=== PATIENT | female | born 1940 | race Hispanic/Latino ===

== ENCOUNTER 2018-03-09 23:56 | Emergency (ER) | payer OTHER ==
[2018-03-10] MEDS ORDERED: METOPROLOL TARTRATE 25 MG TAB ONE (01:33)
[2018-03-10 02:47] LABS: APPEARANCE,URINE Clear (CLEAR); BILIRUBIN,URINE Negative (NEGATIVE); COLOR,URINE Yellow (YELLOW); GLUCOSE, URINE (UA) Negative (NEGATIVE); KETONES,URINE Negative (NEGATIVE); LEUKOCYTE ESTERASE ,URINE Moderate (NEGATIVE); NITRATE,URINE Negative (NEGATIVE); OCCULT BLOOD,URINE Negative (NEGATIVE); PH,URINE 6.5 (5.0-8.0); PROTEIN,URINE Negative (NEGATIVE); UROBILINOGEN,URINE 0.2 mg/dL (0.2-1.0)
[2018-03-10 03:22] LABS: BACTERIA,URINE Rare /HPF (None Seen); RBC,URINE 0-1 /HPF (0-1); WBC,URINE 0-1 /HPF (0-1)
[2018-03-10 03:23] LABS: MUCUS,URINE Rare LPF (None Seen); SQUAMOUS EPITHELIAL CELL,UR 0-2 /HPF (0-2)
== END 2018-03-10 03:15 | disposition home or self-care (01) ==
LOC: EDH 23:56
DX: I16.0 Hypertensive urgency (principal); F43.20 Adjustment disorder, unspecified; I10 Essential (primary) hypertension
CPT/HCPCS: 81001; 93005

== ENCOUNTER → 2022-11-25 | Outpatient (CLI) | payer MEDICARE | END | disposition home or self-care (01) | LOC: RAH 09:25 | PROVIDERS: ATTEND Student in an Organized Health Care Education/Training Program | DX: N63.42 Unspecified lump in left breast, subareolar (principal); D24.2 Benign neoplasm of left breast; N64.89 Other specified disorders of breast; N60.02 Solitary cyst of left breast | CPT/HCPCS: 76641 ==

== ENCOUNTER → 2022-12-30 | Outpatient (CLI) | payer MEDICARE | END | disposition home or self-care (01) | LOC: RAH 10:35 | PROVIDERS: ATTEND Student in an Organized Health Care Education/Training Program | DX: Z12.31 Encounter for screening mammogram for malignant neoplasm of breast (principal) | CPT/HCPCS: 77067 ==

== ENCOUNTER → 2023-01-20 | Outpatient (CLI) | payer MEDICARE ==
[2023-01-20 09:57] LABS: INR 0.94 (0.85-1.15); PROTHROMBIN TIME 10.9 SEC (9.6-11.6)
[2023-01-20 09:58] LABS: PARTIAL THROMBOPLASTIN TIME 29.3 SEC (26.3-35.5)
== END | disposition home or self-care (01) ==
LOC: RAH 09:07
PROVIDERS: ATTEND Student in an Organized Health Care Education/Training Program
DX: N63.42 Unspecified lump in left breast, subareolar (principal); Z79.01 Long term (current) use of anticoagulants
CPT/HCPCS: 19083; 85610; 85730; 36415; 88305; A4215 ×2; A4648

== ENCOUNTER 2023-08-26 13:41 | Emergency (ER) | payer OTHER, MEDICARE ==
[~2023-08-26] VITALS: Ht 162.6 cm; Wt 56.7 kg
[2023-08-26] MEDS: HYDROCODONE/ACETAMINOPHEN 5/325 MG TAB PO ONE (14:39)
[2023-08-26 17:29] VITALS: BP 139/60; PULSE 63; RESP 14; O2SAT 97
== END 2023-08-26 17:30 | disposition home or self-care (01) ==
LOC: EDH 13:41
DX: M79.602 Pain in left arm (principal); M25.562 Pain in left knee; M54.9 Dorsalgia, unspecified; I10 Essential (primary) hypertension; V89.2XXA Person injured in unspecified motor-vehicle accident, traffic, initial encounter; Y93.I9 Activity, other involving external motion; Y92.488 Other paved roadways as the place of occurrence of the external cause; Y99.8 Other external cause status
CPT/HCPCS: 71045; 72170; 73090; 73562

== ENCOUNTER → 2023-09-28 | Outpatient (CLI) | payer MEDICARE ==
[2023-09-28 12:20] LABS: BASOPHILS # (AUTO) 0.09 K/uL (0.00-0.20); BASOPHILS % (AUTO) 1.1 % (0.0-5.0); EOSINOPHILS # (AUTO) 0.32 K/uL (0.00-0.70); HEMATOCRIT 38.6 % (36-48); IMMATURE GRANULOCYTE ABSOLUTE 0.03 K/uL (0-1); LYMPHOCYTES # (AUTO) 2.2 K/uL (1.0-4.8); LYMPHOCYTES % (AUTO) 27.5 % (21.0-51.0); MEAN CORPUSCULAR HEMOGLOBIN 31.3 pg (27.0-33.0); MEAN CORPUSCULAR HGB CONC 32.9 g/dL (32.0-36.0); MEAN CORPUSCULAR VOLUME 95.1 fL (79-99); MONOCYTES # (AUTO) 1.2 K/uL (0.1-1.0); NEUTROPHILS # (AUTO) 4.1 K/uL (1.8-7.7); PLATELET COUNT (AUTO) 258 K/uL (130-400); RED BLOOD CELL COUNT(AUTO) 4.06 MIL/uL (4.00-5.50); WHITE BLOOD COUNT (AUTO) 7.9 K/uL (4.8-10.8)
[2023-09-28 12:45] LABS: CREATININE 1.1 mg/dL (0.5-1.0); POTASSIUM 4.6 mmol/L (3.5-5.1)
== END | disposition home or self-care (01) ==
LOC: LAB 08:18
PROVIDERS: ATTEND Internal Medicine Cardiovascular Disease
DX: R73.03 Prediabetes (principal); I10 Essential (primary) hypertension; E78.5 Hyperlipidemia, unspecified
CPT/HCPCS: 36415; 80048; 80061; 83036; 85025